=== PATIENT | female | born 1945 | race Caucasian/White ===

== ENCOUNTER → 2018-05-28 18:09 | Outpatient (CLI) | payer MEDICARE | END | disposition home or self-care (01) | LOC: D.MAMMO 05-09 16:00 | DX: Z12.31 Encounter for screening mammogram for malignant neoplasm of breast (principal) ==

== ENCOUNTER 2018-07-22 08:00 | Outpatient (CLI) | payer MEDICARE | END 2018-07-22 09:00 | disposition home or self-care (01) | LOC: D.MAMMO 08:00 | DX: R92.8 Other abnormal and inconclusive findings on diagnostic imaging of breast (principal) ==

== ENCOUNTER 2020-03-14 01:51 | Outpatient (CLI) | payer MEDICARE | END 2020-03-14 01:52 | disposition home or self-care (01) | LOC: D.HCCECHO 01:51 | PROVIDERS: ATTEND Internal Medicine Cardiovascular Disease | DX: I48.91 Unspecified atrial fibrillation (principal) ==

== ENCOUNTER 2020-10-21 18:16 | Inpatient (IN) | payer MEDICARE ==
[~2020-10-21] VITALS: Ht 154.9 cm; Wt 95.6 kg
--- NOTE | ~2020-10-21 | HEMODYNAMI ---
PATIENT:STEPH GALAN MEDICAL RECORD: [id number] : 41 LOCATION:[place] [address] ADMISSION DATE: 10/21/20 Generatedon:115:08 Patient name: STEPH GALAN Patient #: [id number] SSN: DO B: 1945 Date of study: 10/22/2020 Page: Of Hemodynamic Procedure Report Patient Data Patient Demographics Procedure consent was obtained First Name: STEPH Gender: Female Last Name: ADAMA : 1945 Middle Initial: CHUCHO Age: 75 year(s) Patient #: [id number] Race: Unknown Additional ID: [id number] Contact details Address: [address] [place] [address] [address] State: [place] City: [place] Zip code: [address] Past Medical History Allergies: No known allergies Admission Admission Data Admission Date: 10/21/2020 Admission Time: 23:13 Room #: [facility] Height (in.): 61 BSA: 1.89 (m2) Height (cm.): 154.94 BMI: 37.79 (kg/m2) Weight (lbs.): 200 Weight (kg.): 90.72 Procedure Procedure Types Cath Procedure Peripheral Cath Diagnostic Procedure Abd/Extremity Extremities Right Upper Ext. Arteriogram Procedure Description Procedure Date Procedure Date: 10/22/2020 Procedure Start Time: 14:47 Procedure Staff Name Function Lino Covington MD Performing Physician Lenore Noel RT Engineering Officer Matilda Edmonds RN Nurse Delvin Jordan RT Scrub Procedure Data Cath Procedure Fluoroscopy Diagnostic fluoroscopy Total fluoroscopy Time: 1.9 time: 1.9 min min Diagnostic fluoroscopy Total fluoroscopy dose: 310 dose: 310 mGy mGy Contrast Material Contrast Material Type Amount (ml) Isovue 300 40 Procedure Medications Medication Administration Route Dosage Versed I.V. 1 mg Fentanyl I.V. 50 mcg Lidocaine 1% added to field 20 Heparin Flush Bag added to field 2 bags (1000units/500ml NS) Nitroglycerin IC/IA I.A. 400 mcg Hemodynamics Rest BSA: 1.89 (m2) O2 Consumption: Estimated: 181.74 (ml/min) O2 Consumption indexed : Estimated:96.16 (ml/min/m) Heart Rate: 85 (bpm) Snapshots Pre Cath Intra NCS Post Cath Vital Signs Time Heart Resp SPO2 etCO2 NIBP (mmHg) Rhythm Pain Sedation Rate (ipm) (%) (mmHg) Status Level (bpm) 14:17:09 35.6 160/106(134) NSR 0 (11) 10(A) , No pain 14:21:19 34.1 148/99(126) NSR 0 (11) 10(A) , No pain 14:25:25 85 14 35.6 152/103(130) NSR 0 (11) 10(A) , No pain 14:29:33 94 13 97 36.4 146/97(121) NSR 0 (11) 10(A) , No pain 14:33:38 91 12 92 37.1 159/110(142) NSR 0 (11) 10(A) , No pain 14:37:48 83 14 89 35.6 160/111(122) NSR 0 (11) 10(A) , No pain 14:42:02 92 13 94 36.4 157/111(140) NSR 0 (11) 10(A) , No pain 14:46:12 91 13 100 29.6 163/103(131) NSR 0 (11) 10(A) , No pain 14:50:22 81 9 35.6 170/107(143) NSR 0 (11) 10(A) , No pain 14:54:40 84 10 95 34.9 127/84(119) NSR 0 (11) 10(A) , No pain 14:58:42 91 11 33.3 117/83(111) NSR 0 (11) 10(A) , No pain 15:02:37 88 11 97 34.1 130/90(121) NSR 0 (11) 10(A) , No pain 15:06:37 77 13 96 35.6 138/99(121) NSR 0 (11) 10(A) , No pain Medications Time Medication Route Dose Verified Delivered Reason Notes Effect iveness by by 14:49:45 Versed I.V. 1 mg Lino Covington Grey RN sedation 14:49:56 Fentanyl I.V. 50 Lino Matilda for mcg Grey Covington RN sedation 14:50:10 Lidocaine 1% added 20ml Lino Huynh to vial Adria Covington MD field MD 14:50:22 Heparin Flush added 2 Lino Huynh Bag to bags Adria Covington MD (1000units/500ml field RAZO NS) 14:57:12 Nitroglycerin I.A. 400 Lino Huynh IC/IA mcg Adria Covington MD MD Procedure Log Time Note 12:00:23 Patient Height : 61 inches 12:00:23 Patient Weight : 200 lbs 12:01:21 Patient allergic to No known allergies 14:17:24 Delvin Jordan RT (R) (CV) sent for patient. Start room use. 14:17:35 Time tracking: Call back (After hours or weekends) 14:17:39 Plan of Care:Hemodynamics will remain stable., Cardiac rhythm will remain stable., Comfort level will be maintained., Respiratory function will remain adequate., Patient/ family verbilizes understanding of procedure., Procedure tolerated without complication., Recovers from procedure without complications.. 14:17:45 Patient received from CVICU to IR Alert and oriented. Tansferred to table in Supine position. 14:17:48 Signed procedure consent form obtained from patient. 14:17:49 Warm blankets applied, and negin hugger turned on for patient comfort. 14:17:50 Correct patient and procedure confirmed by team. 14:17:51 ECG and BP/O2 sat monitors applied to patient. 14:17:58 Use device set IR Diagnostic 14:18:02 Tegaderm 4 x 4 (1626W) opened to sterile field. 14:18:03 Sterile Angiographic Pack opened to sterile field. 14:18:04 Bag Decanter () opened to sterile field. 14:18:17 Full Disclosure recording started 14:18:18 - 14:18:23 H&P Date Dictated: 10/22/2020 Within 30 days and on chart.. 14:18:23 Pre-procedure instructions explained to patient. 14:18:24 Pre-op teaching completed and patient verbalized understanding. 14:18:25 Family in waiting room. 14:18:27 Patient NPO since Midnight. 14:18:33 Is the patient allergic to Iodine/contrast media? No. 14:18:35 Is patient on blood thinner?Yes 14:18:39 ACC The patient was administered the following blood thiners within the last 24 hours: ACCHeparin 14:28:58 Patient diabetic? No. 14:29:00 - 14:29:00 ----Pre-sedation anethsthesia assessment.---- 14:29:04 Previous problem with sedation/anesthesia? No ? 14:29:06 Snore? Yes 14:29:07 Sleep apnea? No 14:29:10 Opens mouth fully? Yes 14:29:12 Sticks out tongue? Yes 14:29:17 Deviated septum? No 14:29:19 Airway obstruction? No ? 14:29:23 Dentures? No ? 14:29:59 Baseline sample Acquired. 14:30:12 Pre procedure: right brachial pulse Doppler 14:30:18 Pre procedure: right ulnar pulse Doppler 14:30:23 Pre procedure: right radial pulse Doppler 14:30:33 Right groin area was prepped with betadine and draped in sterile fashio n 14:30:35 Alarms reviewed by Deonna Del Angel 14:45:55 Physician arrived 14:45:55 --------ALL STOP TIME OUT------ 14:45:56 Final Timeout: patient, procedure, and site verified with staff and physician. All members of the team are in agreement. 14:46:18 Fire Safety Assessment: A--An alcohol-based skin anteseptic being used preoperatively., C--Open oxygen or nitrous oxide is being used. 14:47:18 Procedure started. 14:49:45 Versed 1 mg I.V. was administered by Matilda Edmonds RN; for sedation; Verbal order read back and verified. 14:49:56 Fentanyl 50 mcg I.V. was administered by Matilda Edmonds RN; for sedation ; Verbal order read back and verified. 14:50:10 Lidocaine 1% 20ml vial added to field was administered by Lino Covington MD; ; Verbal order read back and verified. 14:50:22 Heparin Flush Bag (1000units/500ml NS) 2 bags added to field was administered by Lino Covington MD; ; Verbal order read back and verified. 14:57:12 Nitroglycerin IC/IA 400 mcg I.A. was administered by Lino Covington MD; ; Verbal order read back and verified. 14:58:19 VARGAS 260 wire ([id number]) opened to sterile field. 14:58:20 SHEATH 6FR [facility] ([id number]) opened to sterile field. 15:02:41 AMPLATZ Super Stiff 75cm wire ([id number]) opened to sterile field. 15:02:54 ANGIOSEAL-VIP PLUS 6 FR opened to sterile field. 15:04:42 Procedure ended.(Physican Out) 15:05:20 Fluoroscopy time 01.90 minutes. 15:05:25 Fluoroscopy dose: 310 mGy 15:05:25 Flurop Dose total: 310 15:05:30 Contrast amount:Isovue 300 40ml. 15:05:34 Procedure and supply charges have been captured, reviewed, submitted an d are correct. 15:06:06 Report given to CVICU. 15:07:34 Patient transfered to CVICU with Bed. 15:08:02 Vital chart was stopped Device Usage Item Name Manufacture Quantity Catalog Hospital Part Current Minima l Lot# / Number Charge Number Stock Stock Serial# Code Tegaderm 4 x 3M 1 1626W [id number] 802446 620997 5 4 (1626W) Sterile Cardinal 1 [id number] 336163 887622 5 Angiographic Health Pack Bag Decanter Microtek 1 085926 25436 690892 5 () Medical Inc. VARGAS 260 Cook Medical 1 [id number] 166217 488321 627239 5 [id number] wire ([id number]) SHEATH 6FR Terumo 1 [id number] 008812 861766 939141 40 [facility] [facility] (BNT012) AMPLATZ Super [place] 1 [id number] 759567 197546 887008 5 Stiff 75cm Scientific wire ([id number]) ANGIOSEAL-VIP [place] 1 [id number] 975647 387188 774827 5 PLUS 6 FR Signature Audit [place] Stage Time Signature Unsigned Intra-Procedure 10/22/2020 Lenore Noel 3:07:57 PM RT(R) [facility] [address] [place] [address]
--- NOTE | ~2020-10-21 | CN ---
PATIENT NAME:STEPH GALAN MEDICAL RECORD: [id number] : 41 LOCATION:[facility] ADMIT DATE: 10/21/20 ACCOUNT: [id number] CONSULTING PHYSICIAN: PETRONA LOVE MD REFERRING PHYSICIAN: MUNIR MCGUIRE MD DATE OF CONSULTATION: 10/23/2020 HISTORY: The patient is a 75-year-old female with a history of atrial fibrillation, who presented to the hospital with complaints of right arm pain and discomfort. The patient noted to have occlusion of the brachial artery thrombus with occlusion right. The patient underwent interventional radiology procedure. I asked to evaluate from a cardiovascular standpoint. PAST MEDICAL HISTORY: Significant for; 1. Atrial fibrillation. 2. Status post right arterial thrombosed right occlusion. PHYSICAL EXAMINATION: GENERAL: Pleasant, mildly obese elderly white female, sitting, in no apparent distress. VITAL SIGNS: Blood pressure 140s over 70s, pulse 80s (irregular). HEENT: Sclerae are clear; conjunctivae pink. NECK: Supple. No appreciated JVD. HEART: Irregular rhythm and rate. LUNGS: Clear bilaterally. ABDOMEN: Obese. EXTREMITIES: Negative for edema. NEUROLOGIC: Nonfocal. LABORATORY DATA: Sodium is 137, potassium is 4.1, BUN 15, creatinine 0.9. Platelet count is 247. MEDICATIONS: Current: 1. Heparin drip. 2. Sotalol 80 mg b.i.d. 3. Wellbutrin 150 mg daily. 4. Protonix 40 mg daily. 5. Synthroid 100 mcg daily. ASSESSMENT: 1. Atrial fibrillation with controlled ventricular rate. 2. Hypothyroidism. PLAN: Continue current medical management at this time. I would also recommend starting the patient on Eliquis 5 mg b.i.d. given the patient's episodes of atrial fibrillation and recent probable embolic phenomena. The patient may be discharged with outpatient followup in cardiovascular clinic. Follow recommendations clinically indicated. Thank you for allowing me to participate in the care of this patient. TRANSINT:[id number] Voice Confirmation ID: [id number] DOCUMENT ID: [id number] CONSULT REPORT [id number] ADAMASTEPHPETRONA VERAS MD CC: [id number] DICTATION DATE: 10/23/20 1034 STRANDING SUPERVISOR: 10/23/20 1434 [place] [address]
--- NOTE | ~2020-10-21 | HEMODYNAMI ---
PATIENT:STEPH GALAN MEDICAL RECORD: [id number] : 41 [facility]# [id number] ADMISSION DATE: 10/21/20 Generatedon:12:10 Patient name: STEPH GALAN Patient #: [id number] SSN: DO B: 1945 Date of study: 10/22/2020 Page: Of Hemodynamic Procedure Report Patient Data Patient Demographics Procedure consent was obtained First Name: STEPH Gender: Female Last Name: ADAMA : 1945 Middle Initial: CHUCHO Age: 75 year(s) Patient #: [id number] Race: Unknown Additional ID: [id number] Contact details Address: [address] [place] [address] [address] State: [place] City: [place] Zip code: [address] Admission Admission Data Admission Date: 10/21/2020 Admission Time: 23:13 Room #: D.E17 Height (in.): 61 BSA: 1.89 (m2) Height (cm.): 154.94 BMI: 37.79 (kg/m2) Weight (lbs.): 200 Weight (kg.): 90.72 Procedure Procedure Types Cath Procedure Peripheral Cath Diagnostic Procedure Abd/Extremity Extremities Right Upper Ext. Arteriogram Procedure Description Procedure Date Procedure Date: 10/22/2020 Procedure Start Time: 0:37 Procedure Staff Name Function Lino Covington MD Performing Physician Lenore Noel RT [employer] [place] Hand Matilda Edmonds RN Nurse Delvin Jordan RT Scrub Procedure Data Cath Procedure Fluoroscopy Diagnostic fluoroscopy Total fluoroscopy Time: time: 15.3 min 15.3 min Diagnostic fluoroscopy Total fluoroscopy dose: 196 dose: 196 mGy mGy Contrast Material Contrast Material Type Amount (ml) Isovue 300 72 Diagnostic catheters Device Type Used For End Catheter Placement Merit Impress Dugan 5FR. 100CM catheter ([id number]) DIAGNOSTIC Pigtail 5Fr catheter ([id number]) Procedure Medications Medication Administration Route Dosage Heparin Flush Bag added to field 3 bags (1000units/500ml NS) Lidocaine 1% added to field 20 Hydralizine I.V. 20 mg Versed I.V. 1 mg Fentanyl I.V. 50 mcg Benadryl I.V. 50 mg Versed I.V. 1 mg Fentanyl I.V. 50 mcg Heparin Bolus I.V. 5000 units TPA 5 mg Hemodynamics Rest BSA: 1.89 (m2) O2 Consumption: Estimated: 191.57 (ml/min) O2 Consumption indexed : Estimated:101.36 (ml/min/m) Heart Rate: 99 (bpm) Snapshots Pre Cath Intra NCS Post Cath Vital Signs Time Heart Resp SPO2 etCO2 NIBP (mmHg) Rhythm Pain Sedation Rate (ipm) (%) (mmHg) Status Level (bpm) 0:31:21 100 3 98 32.6 Measuring NSR 0 (11) 10(A) , No pain 0:31:44 90 7 98 31.1 187/132(153) NSR 0 (11) 10(A) , No pain 0:36:02 97 15 100 29.6 193/130(150) NSR 0 (11) 10(A) , No pain 0:40:24 93 10 37.9 183/115(145) NSR 0 (11) 10(A) , No pain 0:44:38 123 17 99 32.6 143/100(118) NSR 0 (11) 9(A) , No pain 0:49:31 125 20 100 28.8 138/100(110) NSR 0 (11) 9(A) , No pain 0:54:30 126 19 27.3 Measuring NSR 0 (11) 9(A) , No pain 0:54:45 131 21 26.5 118/91(111) NSR 0 (11) 9(A) , No pain 0:58:40 131 20 28.1 108/90(100) NSR 0 (11) 9(A) , No pain 1:02:36 125 20 99 25.8 126/81(88) NSR 0 (11) 9(A) , No pain 1:06:43 100 18 99 27.3 93/64(84) NSR 0 (11) 9(A) , No pain 1:10:43 71 21 99 25 91/53(72) NSR 0 (11) 9(A) , No pain 1:14:41 81 18 99 25 89/57(72) NSR 0 (11) 9(A) , No pain 1:18:36 83 18 100 25.8 91/58(72) NSR 0 (11) 9(A) , No pain 1:22:36 82 21 99 25 87/48(68) NSR 0 (11) 9(A) , No pain 1:26:32 67 14 97 26.5 99/53(66) NSR 0 (11) 9(A) , No pain 1:30:35 77 20 91 23.5 89/45(71) NSR 0 (11) 9(A) , No pain 1:34:35 76 15 23.5 78/50(61) NSR 0 (11) 9(A) , No pain 1:38:28 83 20 97 21.2 89/54(70) NSR 0 (11) 9(A) , No pain 1:42:24 82 27 96 20.5 99/59(81) NSR 0 (11) 9(A) , No pain 1:46:17 91 17 26.6 110/74(91) NSR 0 (11) 9(A) , No pain 1:50:15 88 11 27.3 120/75(82) NSR 0 (11) 9(A) , No pain 1:54:17 90 18 25.8 124/75(103) NSR 0 (11) 9(A) , No pain 1:58:18 97 18 28.8 128/77(103) NSR 0 (11) 9(A) , No pain 2:02:26 93 13 24.3 129/66(82) NSR 0 (11) 9(A) , No pain 2:07:21 96 13 25.8 116/72(97) NSR 0 (11) 9(A) , No pain Medications Time Medication Route Dose Verified Delivered Reason Notes Eff ectiveness by by 0:05:11 Heparin Flush added 3 Lino Huynh used for Bag to bags Adria Covington MD procedure (1000units/500ml field RAZO NS) 0:05:29 Lidocaine 1% added 20ml Lino Huynh for local to vial Adria Covington MD anesthetic field RAZO 0:39:12 Benadryl I.V. 50 mg Lino Grey Per Grey Covington RN physician 0:40:40 Hydralizine I.V. 20 mg Lino Grey for Grey Covington RN, MD 0:41:19 Versed I.V. 1 mg Lino Matilda for sedation Grey Covington RN, MD 0:41:32 Fentanyl I.V. 50 Lino Grey for sedation mcg Grey Covington RN, MD 0:56:10 Versed I.V. 1 mg Lino Grey for sedation Grey Covington RN, MD 0:56:28 Fentanyl I.V. 50 Lino Matilda for sedation mcg Grey Covington RN, MD 1:03:26 Heparin Bolus I.V. 5000 Lino Grey Per units Grey Covington RN physician 1:08:33 TPA ia 5 mg Adria Santana MD MD Procedure Log Time Note 23:51:10 Patient Height : 61 inches 23:51:15 Patient Weight : 200 lbs 23:52:34 Use device set IR Diagnostic 23:53:30 VARGAS 260 wire ([id number]) opened to sterile field. 23:53:33 SHEATH 5FR [place] (IEE602) opened to sterile field. 23:53:34 Micropuncture VSI 4FR kit opened to sterile field. 23:53:35 Tegaderm 4 x 4 (1626W) opened to sterile field. 23:53:36 Sterile Angiographic Pack opened to sterile field. 23:53:37 Bag Decanter (2002S) opened to sterile field. 23:53:39 ACIST Manifold (01346) opened to sterile field. 23:53:40 ACIST Hand Control (01733) opened to sterile field. 23:53:41 ACIST Syringe (56970) opened to sterile field. 23:53:55 DOUBLE ENDED GUIEDWIRE DOC 145CM (D12663) opened to sterile field. 23:54:51 - 0:05:11 Heparin Flush Bag (1000units/500ml NS) 3 bags added to field was administered by Lino Covington MD; used for procedure; Verbal order read back and verified. 0:05:29 Lidocaine 1% 20ml vial added to field was administered by Lino Covington MD; for local anesthetic; Verbal order read back and verified. 0:13:45 Time tracking: Regular hours (M-F 7:00 - 5:00) 0:15:12 Plan of Care:Hemodynamics will remain stable., Cardiac rhythm will remain stable., Comfort level will be maintained., Respiratory function will remain adequate., Patient/ family verbilizes understanding of procedure., Procedure tolerated without complication., Recovers from procedure without complications.. 0:15:20 Patient received from ED to IR Alert and oriented. Tansferred to table in Supine position. 0:15:24 Signed procedure consent form obtained from patient. 0:15:38 H&P Date Dictated: 10/22/2020 ER History on chart.. 0:15:40 Pre-procedure instructions explained to patient. 0:15:41 Pre-op teaching completed and patient verbalized understanding. 0:15:44 Family in waiting room. 0:15:51 Patient NPO since Lunch. 0:16:02 Is the patient allergic to Iodine/contrast media? No. 0:16:09 Is patient on blood thinner?Yes 0:16:15 ACC The patient was administered the following blood thiners within the last 24 hours: ACCHeparin 0:18:39 Patient diabetic? No. 0:18:45 ----Pre-sedation anethsthesia assessment.---- 0:18:48 Previous problem with sedation/anesthesia? No ? 0:18:52 Snore? Yes 0:18:55 Sleep apnea? No 0:18:59 Deviated septum? No 0:19:01 Opens mouth fully? Yes 0:19:05 Sticks out tongue? Yes 0:19:26 Airway obstruction? No but has new onset of AFIB 0:19:31 Dentures? No ? 0:19:33 - 0:19:47 Right groin area was prepped with chlora-prep and draped in sterile fashion 0:19:59 Fire Safety Assessment: A--An alcohol-based skin anteseptic being used preoperatively., C--Open oxygen or nitrous oxide is being used. 0:20:06 3a) 45-59 Moderately reduced kidney function. 0:20:10 - 0:22:09 Pre procedure: right dorsailis pedis pulse Doppler 0:22:13 Pre procedure: right posterior tibial pulse Doppler 0:24:44 Pre procedure: right radial pulse 0-Absent 0:24:51 Pre procedure: right ulnar pulse 0-Absent 0:24:58 - 0:29:32 Vital chart was started 0:29:43 ECG and BP/O2 sat monitors applied to patient. 0:29:48 Baseline sample Acquired. 0:29:51 Full Disclosure recording started 0:29:54 - 0:35:36 Alarms reviewed by Deonna Del Angel 0:35:39 Physician arrived 0:35:40 --------ALL STOP TIME OUT------ 0:35:41 Final Timeout: patient, procedure, and site verified with staff and physician. All members of the team are in agreement. 0:37:11 Procedure started. 0:37:16 Local anesthetic to right femoral artery with Lidocaine 1% by Lino Covington MD.INITIAL ACCESS ONLY 0:39:12 Benadryl 50 mg I.V. was administered by Matilda Edmonds RN; Per physician ; Verbal order read back and verified. 0:40:40 Hydralizine 20 mg I.V. was administered by Matilda Edmonds RN; for hypertension; Verbal order read back and verified. 0:41:19 Versed 1 mg I.V. was administered by Matilda Edmonds RN; for sedation; Verbal order read back and verified. 0:41:28 AMPLATZ Super Stiff 75cm wire ([id number]) opened to sterile field. 0:41:32 Fentanyl 50 mcg I.V. was administered by Matilda Edmonds RN; for sedation ; Verbal order read back and verified. 0:51:14 TORQUE DEVICE PLASTIC .038 ( TD01) opened to sterile field. 0:51:17 A Merit Impress Dugan 5FR. 100CM catheter ([id number]) was advanced over the wire and used for . 0:51:22 A DIAGNOSTIC Pigtail 5Fr catheter (801131L) was advanced over the wire and used for . 0:51:31 GLIDE WIRE ANGLE 260cm (OK4550) opened to sterile field. 0:56:10 Versed 1 mg I.V. was administered by Matilda Edmonds RN; for sedation; Verbal order read back and verified. 0:56:28 Fentanyl 50 mcg I.V. was administered by Matilda Edmonds RN; for sedation ; Verbal order read back and verified. 1:00:06 Cook RAABE 6FR. 90cm guide sheath opened to sterile field. 1:02:18 CXI SUPPORT .035 135 CM STR catheter (A64230) opened to sterile field. 1:03:26 Heparin Bolus 5000 units I.V. was administered by Matilda Edmonds RN; Per physician; Verbal order read back and verified. 1:08:33 TPA 5 mg ia was administered by Lino Covington MD; ; Verbal order read gwen k and verified. 1:09:14 INFUSION CATHETER 10cm Marely-Marques (8026598) opened to sterile field . 1:14:07 Indigo Cat 6f w tubing ([id number]) opened to sterile field. 1:33:22 COPILOT Valve Control (8211258) opened to sterile field. 1:46:45 Procedure ended.(Physican Out) 1:47:18 Fluoroscopy time 15.30 minutes. 1:47:23 Flurop Dose total: 196 1:47:23 Fluoroscopy dose: 196 mGy 1:47:29 Contrast amount:Isovue 300 72ml. 1:47:31 Procedure and supply charges have been captured, reviewed, submitted an d are correct. 1:47:42 Report given to CVICU. 2:09:49 Patient transfered to CVICU with Bed. 2:10:17 Vital chart was stopped Device Usage Item Name Manufacture Quantity Catalog Hospital Part Current Minim al Lot# / Number Charge Number Stock Stock Serial# Code VARGAS 260 wire Cook Medical 1 [id number] 049519 [id number] 5 ([id number]) SHEATH 5FR Terumo 1 [id number] 036819 160012 099816 5 Burton (KPS937) Micropuncture VSI VASCULAR 1 7266V 624958 687170 5 VSI 4FR kit SOLUTIONS Tegaderm 4 x 4 3M 1 1626W 333149 681166 793853 5 (1626W) Sterile Cardinal 1 [id number] 835764 254519 5 Angiographic Health Pack Bag Decanter Microtek 1 2001S 370159 11145 332422 5 (2001S) Medical Inc. ACIST Manifold Acist 1 36958 759760 671480 090402 5 (16090) Medical Systems Inc ACIST Hand Acist 1 37997 610613 697424 045450 5 Control Medical (25375) Systems Inc ACIST Syringe Acist 1 33233 037813 776361 611518 20 (41921) Medical Systems Inc DOUBLE ENDED Cook Medical 1 G82740 276937 507050 1 GUIEDWIRE DOC 145CM (L12760) AMPLATZ Super [place] 1 [id number] 689524 468047 771841 5 Stiff 75cm Scientific wire ([id number]) TORQUE DEVICE [place] 1 TD01 111218 984446 446890 5 PLASTIC .038 ( Scientific TD01) Merit Impress Merit 1 [id number] 853042 697461 5 Dugan 5FR. Medical 100CM catheter (469918UMA) DIAGNOSTIC Cardinal 1 453781R 163218 822415 604865 5 Pigtail 5Fr Health catheter (535136R) GLIDE WIRE Terumo 1 OQ6213 220865 256925 657919 5 ANGLE 260cm (CH2825) Cook RAABE [place] [employer] 1 K46778 290761 204174 5 6FR. 90cm guide sheath CXI SUPPORT [facility] 1 H65168 283284 018430 057636 5 [id number] .035 135 CM STR catheter (I55423) INFUSION Medtronic 1 70168-38 335125 522288 5 CATHETER 10cm Marely-Marques (7183988) Indigo Cat 6f Pen[place]ra 1 [id number] 157916 313665 021283 1 w tubing (EOY5HNB) COPILOT Valve [place] 1 0579018 456762 559191 335600 5 Control Vascular (6257964) Signature Audit [place] Stage Time Signature Unsigned Intra-Procedure 10/22/2020 Lenore Noel 2:10:11 AM RT(R) [facility] [address] [place] [address]
[2020-10-21 19:30] VITALS: BP 156/125
--- NOTE | 2020-10-21 19:35 | NUR ---
CHECKED PT RADIAL AND BRACHIAL PULSE, NO PULSE FOUND
[2020-10-21 20:30] VITALS: BP 140/85
[2020-10-21 21:14] LABS: BASOPHILS 0.2 % (0-2); EOSINOPHILS 0.1 % (0-7); HEMATOCRIT 43.8 % (36.0-48.0); HEMOGLOBIN 14.6 g/dL (12-16); IMMATURE GRANULOCYTES 0.2 % (0-5); LYMPHOCYTE ABS# 1.12 10x3/uL (1.18-3.74); LYMPHOCYTES 11.4 % (15-50); MCH 31.3 pg (26.0-34.0); MCHC 33.3 g/dL (31.0-37.0); MCV 93.8 fL (80.0-100.0); MEAN PLATELET VOLUME 10.7 fL (7.4-10.4); MONOCYTES 4.4 % (2-11); NEUTROPHIL ABS# 8.23 10x3/uL (1.56-6.13); NEUTROPHILS 83.7 % (40-80); PLATELET COUNT 247 10x3/uL (130-400); RBC 4.67 10x6/uL (4.00-5.40); RDW 13.6 % (11.5-14.5); WBC 9.8 10x3/uL (4.8-10.8)
[2020-10-21 21:26] LABS: INR 1.12 (0.85-1.17); PROTIME 13.4 SECONDS (11.6-15.0)
[2020-10-21 21:27] LABS: ANION GAP 11.8 mmol/L (8-16); CALCIUM 9.4 mg/dL (8.5-10.1); CARBON DIOXIDE 27.7 mmol/L (21.0-32.0); POTASSIUM - SERUM 4.5 mmol/L (3.5-5.1)
[2020-10-21 21:30] VITALS: BP 165/110
[2020-10-21 21:33] LABS: ALBUMIN 3.5 g/dL (3.4-5.0); BILIRUBIN - TOTAL 0.43 mg/dL (0.2-1.3); PROTEIN - SERUM 6.9 g/dL (6.4-8.2)
[2020-10-21 22:30] VITALS: BP 145/90
[2020-10-21 23:30] VITALS: BP 157/114
[2020-10-22] VITALS (30 sets, daily range): BP systolic 12–152; BP diastolic 55–95
[2020-10-22 04:48] LABS: BASOPHILS 0.2 % (0-2); EOSINOPHILS 0 % (0-7); HEMATOCRIT 40.2 % (36.0-48.0); HEMOGLOBIN 13.4 g/dL (12-16); IMMATURE GRANULOCYTES 0.1 % (0-5); LYMPHOCYTES 13.3 % (15-50); MCHC 33.3 g/dL (31.0-37.0); MCV 93.1 fL (80.0-100.0); MEAN PLATELET VOLUME 10.8 fL (7.4-10.4); MONOCYTES 5.3 % (2-11); NEUTROPHIL ABS# 7.33 10x3/uL (1.56-6.13); NEUTROPHILS 81.1 % (40-80); PLATELET COUNT 254 10x3/uL (130-400); RBC 4.32 10x6/uL (4.00-5.40); RDW 13.5 % (11.5-14.5)
[2020-10-22 05:01] LABS: INR 1.2 (0.85-1.17); PROTIME 14.1 SECONDS (11.6-15.0)
[2020-10-22 05:03] LABS: APTT 92.1 SECONDS (22.8-39.4)
--- NOTE | 2020-10-22 05:08 | NUR ---
PTT REPORTED FROM LAB. HELD DRIP 30MIN AND DECREASED BY 100UNITS/HR TO 500UNITS/HR. BOTH RIGHT ARM AND RIGHT GROIN WITHOUT ISSUES. PT RESTING.
[2020-10-22 07:23] LABS: ANION GAP 13.5 mmol/L (8-16); CARBON DIOXIDE 21.7 mmol/L (21.0-32.0); CREATININE - SERUM 0.8 mg/dL (0.6-1.3); PHOSPHOROUS 3.8 mg/dL (2.5-4.9); POTASSIUM - SERUM 4.2 mmol/L (3.5-5.1); PROTEIN - SERUM 6.2 g/dL (6.4-8.2); THYROID STIMULATING HORMONE 0.04 uIU/mL (0.36-3.74)
[2020-10-22 07:38] LABS: BILIRUBIN - TOTAL 0.36 mg/dL (0.2-1.3)
--- NOTE | 2020-10-22 11:30 | NUR ---
1130: DR. MORALES NOTIFIED OF NO BRACHIAL OR RADIAL PULSE IN R ARM. ARM REMAINS ON ARM BOARD. FINGERS BLANCHED. NO NEW ORDERS.
[2020-10-22 11:48] LABS: BASOPHILS 0.2 % (0-2); EOSINOPHILS 0 % (0-7); HEMATOCRIT 38.3 % (36.0-48.0); HEMOGLOBIN 12.8 g/dL (12-16); IMMATURE GRANULOCYTES 0.3 % (0-5); LYMPHOCYTE ABS# 1.28 10x3/uL (1.18-3.74); LYMPHOCYTES 12.3 % (15-50); MCH 31.6 pg (26.0-34.0); MCHC 33.4 g/dL (31.0-37.0); MCV 94.6 fL (80.0-100.0); MEAN PLATELET VOLUME 10.9 fL (7.4-10.4); MONOCYTES 8.7 % (2-11); NEUTROPHIL ABS# 8.18 10x3/uL (1.56-6.13); NEUTROPHILS 78.5 % (40-80); PLATELET COUNT 247 10x3/uL (130-400); RBC 4.05 10x6/uL (4.00-5.40); RDW 13.8 % (11.5-14.5); WBC 10.4 10x3/uL (4.8-10.8)
--- NOTE | 2020-10-22 12:27 | NUR ---
1210: ALTEPLASE INCREASE TO 20CC/HR. FAINT RADIAL PULSE NOTED WITH DOPPLER.
[2020-10-22 12:32] LABS: INR 1.29 (0.85-1.17); PROTIME 14.9 SECONDS (11.6-15.0)
[2020-10-22 12:34] LABS: APTT 34.2 SECONDS (22.8-39.4)
--- NOTE | 2020-10-22 14:13 | NUR ---
1400: TO IR FOR ARTERIOGRAM VIA BED.
--- NOTE | 2020-10-22 15:55 | NUR ---
1530: RETURNED FROM IR VIA BED. CONNECTED TO MONITOR AND VS OBTAINED. R RADIAL PULSE STRONG ON PALPATION. R GROIN SITE SOFT. DRESSING C/D/I
--- NOTE | 2020-10-22 17:54 | NUR ---
1740: DR. LOVE NOTIFIED OF CONSULT. PLAN TO SEE TOMORROW.
[2020-10-23] VITALS (22 sets, daily range): BP systolic 130–161; BP diastolic 67–95
[2020-10-23 04:59] LABS: ANION GAP 10.6 mmol/L (8-16); BILIRUBIN - TOTAL 0.5 mg/dL (0.2-1.3); CALCIUM 8.5 mg/dL (8.5-10.1); CARBON DIOXIDE 25.5 mmol/L (21.0-32.0); CREATININE - SERUM 0.9 mg/dL (0.6-1.3); MAGNESIUM - SERUM 1.6 mg/dL (1.8-2.4); PHOSPHOROUS 3.8 mg/dL (2.5-4.9); POTASSIUM - SERUM 4.1 mmol/L (3.5-5.1); PROTEIN - SERUM 5.8 g/dL (6.4-8.2)
--- NOTE | 2020-10-23 06:19 | NUR ---
PATIENT REMAINED FREE OF DISTRESS THROUGHOUT SHIFT. R ARM REMAINED WARM AND PULSES PALPABLE WITH GOOD CAP REFILL. DRESSING TO GROIN REMAINS CLEAN, DRY, AND INTACT. PHYSICIAN AWARE OF PTT RESULTS, NO CHANGES MADE TO HEPARIN GTT. Prosper CHARLTON RN
[2020-10-23 13:14] LABS: BASOPHILS 0.3 % (0-2); EOSINOPHILS 0.8 % (0-7); HEMATOCRIT 34.2 % (36.0-48.0); HEMOGLOBIN 11.4 g/dL (12-16); IMMATURE GRANULOCYTES 0.3 % (0-5); LYMPHOCYTE ABS# 1.85 10x3/uL (1.18-3.74); LYMPHOCYTES 24.7 % (15-50); MCH 31.1 pg (26.0-34.0); MCHC 33.3 g/dL (31.0-37.0); MCV 93.4 fL (80.0-100.0); MEAN PLATELET VOLUME 10.8 fL (7.4-10.4); MONOCYTES 10.4 % (2-11); NEUTROPHIL ABS# 4.76 10x3/uL (1.56-6.13); NEUTROPHILS 63.5 % (40-80); PLATELET COUNT 201 10x3/uL (130-400); RBC 3.66 10x6/uL (4.00-5.40); RDW 13.9 % (11.5-14.5)
[2020-10-23 13:15] LABS: WBC 7.5 10x3/uL (4.8-10.8)
[2020-10-24] VITALS (20 sets, daily range): BP systolic 115–173; BP diastolic 65–94; Ht 154.9 cm; Wt 95.6 kg
--- NOTE | 2020-10-24 00:41 | NUR ---
PT HAVING HARD TIME SLEEPING. PULSE PALPABLE. UP AND BACK TO BATHROOM WITHOUT DIFF. PT ENCOURAGED TO USE C/B TO GET UP TO ASSIST WITH BENADRYL DOSING. VERBALIZED UNDERSTANDING
[2020-10-24 05:14] LABS: ALBUMIN 2.7 g/dL (3.4-5.0); ANION GAP 12.2 mmol/L (8-16); BILIRUBIN - TOTAL 0.35 mg/dL (0.2-1.3); CALCIUM 8.7 mg/dL (8.5-10.1); CARBON DIOXIDE 24.3 mmol/L (21.0-32.0); CREATININE - SERUM 0.9 mg/dL (0.6-1.3); MAGNESIUM - SERUM 1.9 mg/dL (1.8-2.4); PHOSPHOROUS 3.4 mg/dL (2.5-4.9); POTASSIUM - SERUM 3.5 mmol/L (3.5-5.1); PROTEIN - SERUM 5.7 g/dL (6.4-8.2)
--- NOTE | 2020-10-24 12:25 | NUR ---
ADMISSION ASSESSMENT COMPLETED ON 10/24/20 PER REQUEST. ASSESSMENT NOT ENTERED UPON ADMISSION. UNABLE TO OBTAIN ADMISSION VITALS.
[2020-10-24] MEDS ORDERED: SYNTHROID100 MCG PO (12:45)
[2020-10-24] MEDS ORDERED: AMBIEN10 MG PO (12:47)
[2020-10-24] MEDS ORDERED: LISINOPRIL20 MG PO (12:48)
[2020-10-24] MEDS ORDERED: ERGOCALCIF50000 UNIT PO (12:50)
[2020-10-25] VITALS: BP 140/78
[2020-10-25 02:00] VITALS: BP 157/79
[2020-10-25 05:56] LABS: ALBUMIN 2.8 g/dL (3.4-5.0); ANION GAP 11.3 mmol/L (8-16); BILIRUBIN - TOTAL 0.31 mg/dL (0.2-1.3); CALCIUM 8.6 mg/dL (8.5-10.1); CARBON DIOXIDE 25.4 mmol/L (21.0-32.0); CREATININE - SERUM 0.8 mg/dL (0.6-1.3); PHOSPHOROUS 3.6 mg/dL (2.5-4.9); POTASSIUM - SERUM 3.7 mmol/L (3.5-5.1); PROTEIN - SERUM 5.6 g/dL (6.4-8.2)
[2020-10-25] MEDS ORDERED: BETAPACE 80 MG80 MG PO (12:18)
[2020-10-25] MEDS ORDERED: ELIQUIS5 MG PO (12:18)
== END 2020-10-25 14:18 | disposition home or self-care (01) | DRG 254 ==
LOC: D.ER 18:16 → D.EDHOLD 23:13 → D.CVICU 23:13
PROVIDERS: Family Medicine; General Practice; ADMIT Family Medicine; ATTEND Family Medicine
PROC: 03C73ZZ Extirpation of Matter from Right Brachial Artery, Percutaneous Approach (ICD-10-PCS; 2020-10-21)
PROC: 3E05317 Introduction of Other Thrombolytic into Peripheral Artery, Percutaneous Approach (ICD-10-PCS; principal; 2020-10-21 23:50)
PROC: 3E06317 Introduction of Other Thrombolytic into Central Artery, Percutaneous Approach (ICD-10-PCS; 2020-10-22)
DX: I74.2 Embolism and thrombosis of arteries of the upper extremities (principal); I48.91 Unspecified atrial fibrillation; B94.8 Sequelae of other specified infectious and parasitic diseases; I10 Essential (primary) hypertension; E03.9 Hypothyroidism, unspecified; K21.9 Gastro-esophageal reflux disease without esophagitis; F32.9 Major depressive disorder, single episode, unspecified; E78.5 Hyperlipidemia, unspecified; D50.9 Iron deficiency anemia, unspecified